=== PATIENT | male | born 1960 | race Caucasian/White ===

== ENCOUNTER 2019-07-11 12:53 | Emergency (ER) | payer BC ==
[2019-07-11] MEDS ORDERED: Albuterol/Ipratropium 3.0-0.5 MG/3 ML Neb Soln NEB ONE (13:48)
--- NOTE | 2019-07-11 13:51 | EDM.PDOC ---
ED HPI GENERAL MEDICAL PROBLEM - General Chief Complaint: Respiratory Problem Stated Complaint: COUGH CHEST PAIN AND SHOULDER PAIN Time Seen by Provider: 07/11/19 13:35 Source of Information: Reports: Patient, Family, Old Records History Limitations: Reports: No Limitations - History of Present Illness INITIAL COMMENTS - FREE TEXT/NARRATIVE: 59 yo male with COPD/tobacco abuse presents with onset upon awakening this morning of sharp R sided chest pains. No fever. Does have a cough. His SOB is not worse than usual. Pain is at times "tightness" and at times more sharp. No calf pain or LE edema. Coughing and deep breathing are the only things that make his breathing worse. Onset: Today Onset Date: 07/11/19 Onset Time: 07:45 Duration: Hour(s):, Constant Location: Reports: Chest Quality: Reports: Pressure, Sharp Severity: Moderate Improves with: Reports: Rest Worsens with: Reports: Breathing (and coughing) Context: Reports: Other (See HPI) Associated Symptoms: Reports: Cough, Shortness of Breath (chronic, not worse). Denies: Diaphoresis, Fever/Chills, Rash Treatments [employer] PROF[employer]: Reports: Other (see below) (none) Chest Pain Score (Numeric/FACES): 6 - Related Data Allergies Allergy/AdvReac Type Severity Reaction Status Date / Time No Known Allergies Allergy Verified 07/11/19 13:26 Home Meds: Home Meds Albuterol Sulfate [Proair Hfa] 1 - 2 puff INH Q4HR PRN 05/28/15 [History] Fluticasone Propion/Salmeterol [Fluticasone-Salmeterol 250-50] 1 puff IH BID [History] Fluticasone/Umeclidin/Vilanter [Trelegy Ellipta 100-62.5-25] 1 puff IH DAILY [History] Past Medical History HEENT History: Reports: Impaired Vision Other HEENT History: wears reading glasses Cardiovascular History: Reports: None Respiratory History: Reports: Asthma, COPD Gastrointestinal History: Reports: None Genitourinary History: Reports: None Musculoskeletal History: Reports: None Neurological History: Reports: None Psychiatric History: Reports: None Endocrine/Metabolic History: Reports: None Hematologic History: Reports: None Immunologic History: Reports: None Oncologic (Cancer) History: Reports: None Dermatologic History: Reports: None - Infectious Disease History Infectious Disease History: Reports: Chicken Pox, Mumps - Past Surgical History HEENT Surgical History: Reports: Oral Surgery Respiratory Surgical History: Reports: None Social & Family History - Family History Family Medical History: Noncontributory ED ROS GENERAL - Review of Systems Review Of Systems: See Below Constitutional: Reports: No Symptoms HEENT: Reports: No Symptoms Respiratory: Reports: Shortness of Breath (chronic, not worse), Cough. Denies: Wheezing, Pleuritic Chest Pain, Sputum, Hemoptysis Cardiovascular: Reports: Chest Pain (R anterior ), Dyspnea on Exertion (chronic) . Denies: Edema, Palpitations, Syncope GI/Abdominal: Reports: No Symptoms : Reports: No Symptoms Musculoskeletal: Reports: No Symptoms Skin: Reports: No Symptoms Neurological: Reports: No Symptoms Psychiatric: Reports: No Symptoms ED EXAM, GENERAL - Physical Exam Exam: See Below Exam Limited By: No Limitations General Appearance: Alert, WD/WN, No Apparent Distress Eye Exam: Bilateral Eye: Normal Inspection Ears: Normal External Exam, Normal Canal, Hearing Grossly Normal, Normal TMs Ear Exam: Bilateral Ear: Auricle Normal, Canal Normal, TM normal Nose: Normal Inspection, No Blood Throat/Mouth: Normal Inspection, Normal Lips, Normal Oropharynx, Normal Voice, No Airway Compromise Head: Atraumatic, Normocephalic Neck: Normal Inspection Respiratory/Chest: No Respiratory Distress, No Accessory Muscle Use, Chest Non- Tender, Decreased Breath Sounds Cardiovascular: Regular Rate, Rhythm, No Edema GI/Abdominal: Normal Bowel Sounds, Soft, Non-Tender, No Distention Back Exam: Normal Inspection. No: CVA Tenderness (R), CVA Tenderness (L) Extremities: Normal Inspection, Normal Range of Motion, Non-Tender, No Pedal Edema Neurological: Alert, Oriented, CN II-XII Intact, Normal Cognition, No Motor/ Sensory Deficits Psychiatric: Normal Affect, Normal Mood Skin Exam: Warm, Dry, Intact, Normal Color, No Rash EKG INTERPRETATION EKG Date: 07/11/19 Time: 13:20 Rhythm: NSR Rate (Beats/Min): 82 [place]: Normal P-Wave: Present QRS: Normal ST-T: Normal QT: Normal Comparison: NA - No Prior EKG Course - Vital Signs Last Recorded V/S: Last Vital Signs Temp 35.9 C L 07/11/19 13:21 Pulse 88 02/19/20 13:21 Resp 20 07/11/19 13:21 BP 103/77 07/11/19 13:21 Pulse Ox 92 L 07/11/19 13:21 - Orders/Labs/Meds Orders: Active Orders 24 hr Category Date Time Status Cardiac Monitoring [RC] .As Directed Care 07/11/19 13:27 Active EKG Documentation Completion [RC] ASDIRECTED Care 07/11/19 13:27 Active RT Aerosol Therapy [RC] ASDIRECTED Care 07/11/19 13:48 Active Chest 2V [CR] Stat Exams 07/11/19 13:45 Taken EKG 12 Lead [EK] Routine Ther 07/11/19 13:27 Ordered Labs: Laboratory Tests 07/11/19 07/11/19 07/11/19 Range/Units 14:00 14:00 14:00 WBC 7.6 (4.5-11.0) K/uL RBC 4.98 (4.30-5.90) M/uL Hgb 15.1 H (12.0-15.0) g/dL Hct 45.9 (40.0-54.0) % MCV 92 (80-98) fL MCH 30 (27-31) pg MCHC 33 (32-36) % Plt Count 250 (150-400) K/uL D-Dimer, Quantitative < 100 (0.0-400.0) ng/mL Sodium 140 (140-148) mmol/L Potassium 4.9 (3.6-5.2) mmol/L Chloride 104 (100-108) mmol/L Carbon Dioxide 29 (21-32) mmol/L Anion Gap 7.3 (5.0-14.0) mmol/L BUN 19 H (7-18) mg/dL Creatinine 1.1 (0.8-1.3) mg/dL Est Cr Clr Drug Dosing 54.67 mL/min Estimated GFR (MDRD) > 60 (>60) Glucose 83 (74-106) mg/dL Calcium 8.7 (8.5-10.1) mg/dL Troponin I < 0.017 (0.000-0.056) ng/mL Meds: Medications Discontinued Medications Generic Name Dose Route Start Last Admin Trade Name Freq PRN Reason Stop Dose Admin Albuterol/Ipratropium 3 ml 07/11/19 13:48 07/11/19 14:09 Duoneb 3.0-0.5 Mg/3 Ml NEB 07/11/19 13:49 3 ml ONETIME ONE Administration - Radiology Interpretation Free Text/Narrative:: CXR-emphysematous changes only Departure - Departure Time of Disposition: 14:40 Disposition: Home, Self-Care 01 Condition: Fair Clinical Impression: COPD exacerbation - Discharge Information *PRESCRIPTION DRUG MONITORING PROGRAM REVIEWED*: Not Applicable *COPY OF PRESCRIPTION DRUG MONITORING REPORT IN PATIENT DONN: Not Applicable Instructions: Chronic Obstructive Pulmonary Disease, [id number] Referrals: Sam Banks MD [Primary Care Provider] - Forms: ED Department Discharge Additional Instructions: Add prednisone to your current medications. Avoid any and all smoke exposure. Recheck with your doctor Tuesday afternoon if possible. Sepsis Event Note - Evaluation Sepsis Screening Result: No Definite Risk - Focused Exam Vital Signs: Vital Signs Temp Pulse Resp BP Pulse Ox 07/11/19 13:21 35.9 C L 88 20 103/77 92 L 07/11/19 13:17 35.9 C L 88 20 103/77 92 L Date Exam was Performed: 07/11/19 Time Exam was Performed: 14:29 - My Orders Last 24 Hours: My Active Orders 07/11/19 13:27 Cardiac Monitoring [RC] .As Directed EKG Documentation Completion [RC] ASDIRECTED EKG 12 Lead [EK] Routine 07/11/19 13:45 Chest 2V [CR] Stat 07/11/19 13:48 RT Aerosol Therapy [RC] ASDIRECTED - Assessment/Plan Last 24 Hours: My Active Orders 07/11/19 13:27 Cardiac Monitoring [RC] .As Directed EKG Documentation Completion [RC] ASDIRECTED EKG 12 Lead [EK] Routine 07/11/19 13:45 Chest 2V [CR] Stat 07/11/19 13:48 RT Aerosol Therapy [RC] ASDIRECTED
[2019-07-11 14:20] VITALS: BP 103/77; PULSE 88
--- NOTE | 2019-07-11 14:56 | CR ---
CHEST: 2 view CLINICAL HISTORY:Right-sided pleuritic pain COMPARISON:2015 FINDINGS: Lungs are moderately emphysematous. Heart size and pulmonary vascular are normal. There is vague density in the right upper lung field. The this may represent some super imposition. Impression: Vague density in the right upper lung field. This may represent some super imposition. The pulmonary or pleural lesion is not excluded. It is short-term follow-up or noncontrast CT chest should be considered.
== END 2019-07-11 14:42 | disposition home or self-care (01) ==
LOC: JP.ED 12:53
DX: J44.1 Chronic obstructive pulmonary disease with (acute) exacerbation (principal); Z79.51 Long term (current) use of inhaled steroids
CPT/HCPCS: 36415; 71046; 71046-26; 80048; 84484; 85027; 85379; 93005; 94640; 99285-25; J7620-GY

== ENCOUNTER 2021-03-22 21:17 | Emergency (ER) | payer BC, MEDICAID ==
--- NOTE | 2021-03-22 21:28 | EDM.PDOC ---
ED HPI GENERAL MEDICAL PROBLEM - General Stated Complaint: MEDICAL VIA [facility] Time Seen by Provider: 03/22/21 21:23 Source of Information: Reports: Patient, EMS, RN Notes Reviewed History Limitations: Reports: No Limitations - History of Present Illness INITIAL COMMENTS - FREE TEXT/NARRATIVE: 60-year-old gentleman presents emergency department day complaint of shortness of breath, he arrives by EMS services they did try and offer him a nebulizer but he declined he states the nebulizer usually makes things worse for him. He has a known history of extensive lung disease he states usually he can do pretty good if he moves low however today he got into trouble he had bent over to pick something up and suddenly short of breath the cold air has not helped is difficult for him to catch his breath. No fevers no nausea vomiting no chest pain - Related Data Allergies Allergy/AdvReac Type Severity Reaction Status Date / Time No Known Allergies Allergy Verified 07/11/19 13:26 Home Meds: Home Meds Albuterol Sulfate [Proair Hfa] 1 - 2 puff INH Q4HR PRN 05/28/15 [History] Fluticasone Propion/Salmeterol [Fluticasone-Salmeterol 250-50] 1 puff IH BID 07/11/19 [History] Fluticasone/Umeclidin/Vilanter [Trelegy Ellipta 100-62.5-25] 1 puff IH DAILY 07/11/19 [History] predniSONE [Prednisone] 20 mg PO BID #20 tablet 07/11/19 [Rx] Past Medical History HEENT History: Reports: Impaired Vision Other HEENT History: wears reading glasses Respiratory History: Reports: Asthma, COPD Dermatologic History: Reports: None - Infectious Disease History Infectious Disease History: Reports: Chicken Pox, Mumps - Past Surgical History HEENT Surgical History: Reports: Oral Surgery Respiratory Surgical History: Reports: None Social & Family History - Family History Family Medical History: No Pertinent Family History - Tobacco Use Tobacco Use Status *Q: Former Tobacco User - Caffeine Use Caffeine Use: Reports: Coffee ED ROS GENERAL - Review of Systems Review Of Systems: See Below Constitutional: Denies: Fever, Chills HEENT: Reports: No Symptoms Respiratory: Reports: Shortness of Breath, Wheezing, Cough. Denies: Sputum Cardiovascular: Reports: No Symptoms GI/Abdominal: Reports: No Symptoms : Reports: No Symptoms ED EXAM, GENERAL - Physical Exam Exam: See Below Exam Limited By: Respiratory Distress General Appearance: Alert, Moderate Distress Respiratory/Chest: Respiratory Distress, Decreased Breath Sounds, Wheezing Cardiovascular: Tachycardia GI/Abdominal: Soft, Non-Tender Course - Vital Signs Last Recorded V/S: Last Vital Signs Temp 97.8 F 03/22/21 21:46 Pulse 92 03/22/21 21:46 Resp 24 H 03/22/21 21:46 BP 142/77 H 03/22/21 21:46 Pulse Ox 98 03/22/21 21:46 - Orders/Labs/Meds Orders: Active Orders 24 hr Category Date Time Status RT Post Treatment Assessment [RC] Click to Edit Care 03/22/21 21:24 Active Chest 2V [CR] Urgent Exams 03/22/21 21:23 Taken Albuterol [Ventolin HFA] Med 03/22/21 21:24 Active 2 gm INH Q2H PRN Isolation [COMM] Stat Oth 03/22/21 21:25 Ordered Medication Orders Albuterol (Albuterol 8 Gm Inhaler) 2 gm INH Q2H PRN PRN Reason: Dyspnea Last Admin: 03/22/21 21:34 Dose: 2 gm Documented by: AMBROSE Labs: Laboratory Tests 03/22/21 03/22/21 03/22/21 Range/Units 21:43 21:43 21:43 WBC 8.5 (4.5-11.0) K/uL RBC 5.15 (4.30-5.90) M/uL Hgb 16.3 H (12.0-15.0) g/dL Hct 47.4 (40.0-54.0) % MCV 92 (80-98) fL MCH 32 H (27-31) pg MCHC 34 (32-36) % Plt Count 274 (150-400) K/uL Neut % (Auto) 65.1 (36-66) % Lymph % (Auto) 24.4 (24-44) % [place] % (Auto) 5.3 (2-6) % Eos % (Auto) 3.6 (2-4) % Baso % (Auto) 1.5 H (0-1) % Sodium 139 L (140-148) mmol/L Potassium 4.6 (3.6-5.2) mmol/L Chloride 103 (100-108) mmol/L Carbon Dioxide 29 (21-32) mmol/L Anion Gap 11.6 (5.0-14.0) mmol/L BUN 22 H (7-18) mg/dL Creatinine 0.9 (0.8-1.3) mg/dL Est Cr Clr Drug Dosing 68.30 mL/min Estimated GFR (MDRD) > 60 (>60) Glucose 100 (74-106) mg/dL Calcium 8.8 (8.5-10.1) mg/dL Troponin I < 0.017 (0.000-0.056) ng/mL Influenza Type A RNA (NEGATIVE) RSV RNA (INAAT) (NEGATIVE) Influenza Type B RNA (NEGATIVE) SARS-CoV-2 RNA (JORGE) (NEGATIVE) 03/22/21 Range/Units 21:53 WBC (4.5-11.0) K/uL RBC (4.30-5.90) M/uL Hgb (12.0-15.0) g/dL Hct (40.0-54.0) % MCV (80-98) fL MCH (27-31) pg MCHC (32-36) % Plt Count (150-400) K/uL Neut % (Auto) (36-66) % Lymph % (Auto) (24-44) % [place] % (Auto) (2-6) % Eos % (Auto) (2-4) % Baso % (Auto) (0-1) % Sodium (140-148) mmol/L Potassium (3.6-5.2) mmol/L Chloride (100-108) mmol/L Carbon Dioxide (21-32) mmol/L Anion Gap (5.0-14.0) mmol/L BUN (7-18) mg/dL Creatinine (0.8-1.3) mg/dL Est Cr Clr Drug Dosing mL/min Estimated GFR (MDRD) (>60) Glucose (74-106) mg/dL Calcium (8.5-10.1) mg/dL Troponin I (0.000-0.056) ng/mL Influenza Type A RNA Negative (NEGATIVE) RSV RNA (INAAT) Negative (NEGATIVE) Influenza Type B RNA Negative (NEGATIVE) SARS-CoV-2 RNA (JORGE) Negative (NEGATIVE) Meds: Medications Generic Name Dose Route Start Last Admin Trade Name Freq PRN Reason Stop Dose Admin Albuterol 2 gm 03/22/21 21:24 03/22/21 21:34 Albuterol 8 Gm Inhaler INH 2 gm Q2H PRN Administration Dyspnea Departure - Departure Time of Disposition: 22:54 Disposition: Home, Self-Care 01 Condition: Fair Clinical Impression: COPD exacerbation - Discharge Information Instructions: Chronic Obstructive Pulmonary Disease Exacerbation, [id number] Referrals: PCP,None [Primary Care Provider] - Additional Instructions: Continue on your antibiotics, take full course of prednisone 20 mg once a day for 5 days, please followup with your primary care provider in 3-5 days if not better, please call return to the emergency department with worsening of symptoms. Sepsis Event Note (ED) - Focused Exam Vital Signs: Vital Signs Temp Pulse Resp BP Pulse Ox 03/22/21 21:46 97.8 F 92 24 H 142/77 H 98 - My Orders Last 24 Hours: My Active Orders 03/22/21 21:23 Chest 2V [CR] Urgent 03/22/21 21:24 RT Post Treatment Assessment [RC] Click to Edit Albuterol [Ventolin HFA] 2 gm INH Q2H PRN 03/22/21 21:25 Isolation [COMM] Stat - Assessment/Plan Last 24 Hours: My Active Orders 03/22/21 21:23 Chest 2V [CR] Urgent 03/22/21 21:24 RT Post Treatment Assessment [RC] Click to Edit Albuterol [Ventolin HFA] 2 gm INH Q2H PRN 03/22/21 21:25 Isolation [COMM] Stat Plan: Assessment Acuity = acute Site and laterality = COPD exacerbation Etiology = unknown Manifestations = none Location of injury = Home Lab values = CBC, BMP unremarkable troponin was negative, Covid was negative Plan Had good improvement with the albuterol neb provided he is now off oxygen feels back to his normal baseline he will get continue to use albuterol as needed did place him on prednisone 20 mg once a day for 5 days follow-up primary care in 3 to 5 days if no better This note was dictated using [employer] voice recognition software please call with any questions on syntax or grammar.
[2021-03-22] MEDS: Albuterol 8 GM Inhaler INH PRN (21:34)
[2021-03-22 22:44] LABS: CORONAVIRUS COVID-19 NAA NEGATIVE (NEGATIVE)
[2021-03-22 23:43] VITALS: BP 138/70; PULSE 85
--- NOTE | 2021-03-23 09:54 | CR ---
CHEST: 2 view CLINICAL HISTORY:SOB COMPARISON: July 2019 FINDINGS: Lungs are emphysematous. The heart size, pulmonary vascularity and hilar structures are normal. No infiltrate effusion or pneumothorax is seen. IMPRESSION: No acute cardiopulmonary process Moderate emphysematous changes .
== END 2021-03-22 23:05 | disposition home or self-care (01) ==
LOC: JP.ED 21:17
DX: J44.1 Chronic obstructive pulmonary disease with (acute) exacerbation (principal); Z20.822 Contact with and (suspected) exposure to COVID-19; Z87.891 Personal history of nicotine dependence
CPT/HCPCS: 0241U; 36415; 71046; 80048; 84484; 85025; 94640; 99285; A9270

== ENCOUNTER 2021-07-20 09:24 | Emergency (ER) | payer MEDICAID ==
[2021-07-20 09:45] VITALS: BP 97/71; PULSE 91
== END 2021-07-20 10:30 | disposition home or self-care (01) ==
LOC: JP.ED 09:24
DX: J44.1 Chronic obstructive pulmonary disease with (acute) exacerbation (principal); U07.1 COVID-19
CPT/HCPCS: 99283; 99284

== ENCOUNTER 2021-08-11 16:15 | Emergency (ER) | payer MEDICARE, MEDICAID ==
[2021-08-11 16:34] VITALS: BP 107/75; PULSE 82
[2021-08-11] MEDS ORDERED: Codeine/guaiFENesin 10-100 MG/5 ML Syrup 5 ML Cup PO ONE (17:12)
[2021-08-11] MEDS ORDERED: Sodium Chloride 0.9% 10 ML Syringe FLUSH PRN (18:11)
[2021-08-11] MEDS ORDERED: Sodium Chloride 0.9% 1,000 ML IV SCH (18:15)
[2021-08-11] MEDS ORDERED: Sodium Chloride 0.9% 75 ML IV SCH (18:15)
[2021-08-11] MEDS ORDERED: Iopamidol 755 Mg/ML 100 ML Bottle IV SCH (18:15)
== END 2021-08-11 19:56 | disposition home or self-care (01) ==
LOC: JP.ED 16:15
DX: J44.9 Chronic obstructive pulmonary disease, unspecified (principal); J18.9 Pneumonia, unspecified organism; R91.1 Solitary pulmonary nodule; Z87.891 Personal history of nicotine dependence
CPT/HCPCS: 36415; 71046; 71275; 80053; 84484; 85025; 85379; 99283; 99285; A9270; J7030; Q9967

== ENCOUNTER 2022-07-28 10:27 | Inpatient (IN) | payer BC, MEDICARE ==
[2022-07-28] MEDS ORDERED: Acetaminophen 325 MG Tab PO ONE (11:24)
[2022-07-28] MEDS ORDERED: Sodium Chloride 0.9% 1,000 ML IV SCH (11:30)
[2022-07-28] MEDS ORDERED: Albuterol 0.083% 2.5 MG/3 ML Neb Soln NEB ONE (11:39)
[2022-07-28 11:47] LABS: ESTIMATED GFR 101 mL/min (>60)
[2022-07-28] MEDS ORDERED: Azithromycin 500 MG in Sodium Chloride 0.9% 250 ML IV SCH (14:00)
[2022-07-28] MEDS ORDERED: Ampicillin/Sulbactam Na 1.5 GM in Sodium Chloride 0.9% 50 ML IV SCH (14:00)
[2022-07-28] MEDS ORDERED: Albuterol 0.083% 2.5 MG/3 ML Neb Soln NEB PRN (14:22)
[2022-07-28] MEDS ORDERED: Albuterol 90 MCG/6.7 GM Inhaler INH PRN (14:22)
[2022-07-28] MEDS ORDERED: Sodium Chloride 0.9% 10 ML Syringe FLUSH PRN (14:22)
[2022-07-28] MEDS ORDERED: Ondansetron 4 MG/2 ML SDV IV PRN (14:22)
[2022-07-28] MEDS ORDERED: Acetaminophen 325 MG Tab PO PRN (14:22)
[2022-07-28 14:57] LABS: CORONAVIRUS COVID-19 NAA NEGATIVE (NEGATIVE)
[2022-07-28] MEDS: Enoxaparin 40 MG/0.4 ML Syringe SUBCUT SCH (15:59)
[2022-07-28] MEDS: methylPREDNISolone Sodium Succinate 40 MG/1 ML SDV IVPUSH SCH (16:01)
[2022-07-28] MEDS: Sodium Chloride 0.9% 1,000 ML IV SCH (18:08)
[2022-07-28] MEDS: Ampicillin/Sulbactam Na 1.5 GM in Sodium Chloride 0.9% 50 ML IV SCH (19:14)
[2022-07-28] MEDS: Formoterol/Mometasone 100-5 MCG 8.8 GM Inhaler IH SCH (20:34)
[2022-07-28] MEDS ORDERED: Sodium Chloride 0.9% 500 ML IV ONE (20:52)
[2022-07-29] MEDS: Ampicillin/Sulbactam Na 1.5 GM in Sodium Chloride 0.9% 50 ML IV SCH ×4 (01:04→19:55)
[2022-07-29] MEDS: methylPREDNISolone Sodium Succinate 40 MG/1 ML SDV IVPUSH SCH ×4 (01:04→23:39)
[2022-07-29] MEDS: Tiotropium Bromide 4 GM Inhalation Spray (2.5mcg/1 dose; 10 doses) INH SCH (07:23)
[2022-07-29] MEDS: Formoterol/Mometasone 100-5 MCG 8.8 GM Inhaler IH SCH ×2 (07:23→20:01)
[2022-07-29] MEDS: Sodium Chloride 0.9% 1,000 ML IV SCH (12:21)
[2022-07-29] MEDS: Enoxaparin 40 MG/0.4 ML Syringe SUBCUT SCH (15:23)
[2022-07-29] MEDS ORDERED: Azithromycin 500 MG in Sodium Chloride 0.9% 250 ML IV SCH (16:00)
[2022-07-30] MEDS: Ampicillin/Sulbactam Na 1.5 GM in Sodium Chloride 0.9% 50 ML IV SCH ×3 (01:58→14:26)
[2022-07-30] MEDS: Formoterol/Mometasone 100-5 MCG 8.8 GM Inhaler IH SCH (07:09)
[2022-07-30] MEDS: Tiotropium Bromide 4 GM Inhalation Spray (2.5mcg/1 dose; 10 doses) INH SCH (07:09)
[2022-07-30] MEDS: methylPREDNISolone Sodium Succinate 40 MG/1 ML SDV IVPUSH SCH ×3 (08:03→23:52)
[2022-07-30] MEDS: TRELEGY ELLIPTA INH SCH (08:40)
[2022-07-30] MEDS: Sodium Chloride 0.9% 1,000 ML IV SCH (12:36)
[2022-07-30] MEDS ORDERED: Azithromycin 250 MG Tab PO SCH (15:00)
[2022-07-30] MEDS: Enoxaparin 40 MG/0.4 ML Syringe SUBCUT SCH (16:24)
[2022-07-30] MEDS: Amoxicillin/Clavulanate K 875-125 MG Tab PO SCH (20:01)
[2022-07-31 07:14] VITALS: BP 115/78; PULSE 76
[2022-07-31] MEDS ORDERED: predniSONE 20 MG Tab PO SCH (08:00)
[2022-07-31] MEDS: TRELEGY ELLIPTA INH SCH (08:02)
[2022-07-31] MEDS: Amoxicillin/Clavulanate K 875-125 MG Tab PO SCH (08:03)
== END 2022-07-31 11:00 | disposition home or self-care (01) | DRG 139 ==
LOC: JP.ED 10:27 → JP.MS 13:50
PROVIDERS: ADMIT Hospitalist; ATTEND Internal Medicine
DX: J18.9 Pneumonia, unspecified organism (principal); E88.01 Alpha-1-antitrypsin deficiency; F41.9 Anxiety disorder, unspecified; J96.01 Acute respiratory failure with hypoxia; E86.0 Dehydration; J43.9 Emphysema, unspecified; Z79.51 Long term (current) use of inhaled steroids; Z87.891 Personal history of nicotine dependence; Z79.899 Other long term (current) drug therapy; Z98.890 Other specified postprocedural states
CPT/HCPCS: 0241U; 36415; 71045; 71045-26; 71250; 71250-26; 80048; 80053; 83735; 83880; 85025; 85379; 85610; 85730; 86140; 87040; 94640; 96361; 96365; 96375; 99222; 99232; 99239; 99285; 99285-25; A9270-GY; J0295; J0456; J1650; J2920; J7030; J7040; J7050; J7512

== ENCOUNTER 2022-07-31 18:55 | Observation (INO) | payer BC, MEDICARE ==
[2022-07-31] MEDS ORDERED: Aspirin 81 MG Tab.Chew PO ONE (19:38)
[2022-07-31] MEDS ORDERED: Ondansetron 4 MG/2 ML SDV IVPUSH ONE (19:38)
[2022-07-31] MEDS ORDERED: Sodium Chloride 0.9% 10 ML Syringe FLUSH PRN (19:38)
[2022-07-31] MEDS ORDERED: Nitroglycerin 0.4 MG Tab.SL SL PRN (19:38)
[2022-07-31] MEDS ORDERED: Albuterol/Ipratropium 3.0-0.5 MG/3 ML Neb Soln NEB ONE (19:38)
[2022-07-31] MEDS ORDERED: Morphine 4 MG/ML Syringe IVPUSH PRN (19:38)
[2022-07-31 20:28] LABS: ESTIMATED GFR 101 mL/min (>60); TROPONIN I HIGH SENSITIVITY 12.2 pg/mL (<=60.3)
[2022-07-31] MEDS ORDERED: Dexamethasone 4 MG/ML SDV PO ONE (21:01)
[2022-07-31] MEDS ORDERED: Melatonin 3 MG Tab PO PRN (22:51)
[2022-07-31] MEDS ORDERED: Benzocaine/Cetylpyridinium/Menthol Lozenge MUCMEM PRN (22:51)
[2022-07-31] MEDS ORDERED: Codeine/guaiFENesin 10-100 MG/5 ML Syrup 5 ML Cup PO PRN (22:51)
[2022-07-31] MEDS ORDERED: Morphine 2 MG/ML SYRINGE IVPUSH PRN (22:52)
[2022-07-31] MEDS ORDERED: LORazepam 2 MG/ML SDV IV PRN (22:52)
[2022-07-31] MEDS ORDERED: Acetaminophen 325 MG Tab PO PRN (22:52)
[2022-07-31] MEDS ORDERED: Ondansetron 4 MG Tab.DIS PO PRN (22:52)
[2022-07-31] MEDS ORDERED: Docusate Sodium 100 MG Cap PO PRN (22:52)
[2022-07-31] MEDS ORDERED: Amoxicillin/Clavulanate K 875-125 MG Tab PO SCH (22:52)
[2022-07-31] MEDS ORDERED: Albuterol 90 MCG/6.7 GM Inhaler INH PRN (23:00)
[2022-07-31] MEDS ORDERED: predniSONE 10 MG Tab PO ONE (23:00)
[2022-07-31] MEDS ORDERED: Amoxicillin/Clavulanate K 875-125 MG Tab***own med PO ONE (23:30)
[2022-07-31] MEDS ORDERED: PREDNISONE 10 MG PO ONE (23:30)
[2022-08-01] MEDS: Formoterol/Mometasone 100-5 MCG 8.8 GM Inhaler IH SCH ×2 (08:58→20:45)
[2022-08-01] MEDS: Tiotropium Bromide 4 GM Inhalation Spray (2.5mcg/1 dose; 10 doses) INH SCH (08:58)
[2022-08-01] MEDS: Enoxaparin 40 MG/0.4 ML Syringe SUBCUT SCH (09:13)
[2022-08-01] MEDS: Amoxicillin/Clavulanate K 875-125 MG Tab***own med PO SCH ×2 (10:26→20:49)
[2022-08-01] MEDS: PREDNISONE 10 MG PO SCH (10:26)
[2022-08-01] MEDS ORDERED: AZITHROMYCIN 500 MG PO SCH (17:00)
[2022-08-01] MEDS ORDERED: Azithromycin 250 MG Tab PO SCH (17:00)
[2022-08-01] MEDS: LORazepam 0.5 MG Tab PO PRN (21:28)
[2022-08-01] MEDS: oxyCODONE 5 MG Tab PO PRN (22:22)
[2022-08-02] MEDS: Tiotropium Bromide 4 GM Inhalation Spray (2.5mcg/1 dose; 10 doses) INH SCH (07:10)
[2022-08-02] MEDS: Formoterol/Mometasone 100-5 MCG 8.8 GM Inhaler IH SCH (07:10)
[2022-08-02] MEDS: PREDNISONE 10 MG PO SCH (08:29)
[2022-08-02] MEDS: Amoxicillin/Clavulanate K 875-125 MG Tab***own med PO SCH (08:29)
[2022-08-02] MEDS: oxyCODONE 5 MG Tab PO PRN (08:29)
[2022-08-02] MEDS: Enoxaparin 40 MG/0.4 ML Syringe SUBCUT SCH (08:29)
[2022-08-02] MEDS: LORazepam 0.5 MG Tab PO PRN (11:48)
[2022-08-02 11:51] VITALS: BP 103/71; PULSE 81
[2022-08-04] MEDS ORDERED: PREDNISONE 10 MG PO SCH (09:00)
== END 2022-08-02 13:05 | disposition home or self-care (01) ==
LOC: JP.ED 18:55 → JP.MS 21:59
PROVIDERS: ADMIT Internal Medicine; ATTEND Internal Medicine
DX: J69.0 Pneumonitis due to inhalation of food and vomit (principal); J96.01 Acute respiratory failure with hypoxia; J44.1 Chronic obstructive pulmonary disease with (acute) exacerbation; E88.01 Alpha-1-antitrypsin deficiency; Z87.891 Personal history of nicotine dependence; Z79.899 Other long term (current) drug therapy; Z20.822 Contact with and (suspected) exposure to COVID-19
CPT/HCPCS: 36415; 71046; 80053; 82947; 83605; 84484; 85025; 85379; 87635; 93005; 93010; 94640; 96372; 96374; 96375; 96376; 99222; 99238; 99284; 99285; A9270; G0378; J1650; J2060; J2270; J2405; J3490; J7512; J8540; J7620; U0002

== ENCOUNTER 2023-04-12 17:56 | Inpatient (IN) | payer BC, MEDICARE ==
[2023-04-12] MEDS ORDERED: methylPREDNISolone Sodium Succinate 125 MG/2 ML SDV IVPUSH ONE (18:07)
[2023-04-12] MEDS ORDERED: Sodium Chloride 0.9% 10 ML Syringe FLUSH PRN (18:07)
[2023-04-12] MEDS ORDERED: Albuterol/Ipratropium 3.0-0.5 MG/3 ML Neb Soln NEB ONE (18:07)
[2023-04-12] MEDS ORDERED: Sodium Chloride 0.9% 1,000 ML IV SCH (18:15)
[2023-04-12 18:28] LABS: BASOPHILS PERCENT AUTO 1.2 % (0.1-1.3); EOSINOPHILS ABSOLUTE AUTO 0.14 K/uL (0.00-0.40); EOSINOPHILS PERCENT AUTO 1.7 % (0.0-5.4); HEMATOCRIT 47.3 % (38.4-49.7); HEMOGLOBIN 16.2 g/dL (12.9-16.9); IMMATURE GRAN ABSOLUTE AUTO 0.03 K/uL (0.00-0.23); IMMATURE GRAN PERCENT AUTO 0.4 % (0.0-0.7); LYMPHOCYTES ABSOLUTE AUTO 1.52 K/uL (0.8-3.3); LYMPHOCYTES PERCENT AUTO 18.5 % (11.4-47.7); MEAN CORPUSCULAR HEMOGLOBIN 32.1 pg (31.6-35.5); MEAN CORPUSCULAR HGB CONC 34.2 g/dL (31.6-35.5); MEAN CORPUSCULAR VOLUME 93.7 fL (81.4-99.0); MONOCYTES PERCENT AUTO 6.1 % (3.3-12.6); NEUTROPHILS ABSOLUTE AUTO 5.93 K/uL (1.0-7.6); NEUTROPHILS PERCENT AUTO 72.1 % (40.0-78.1); PLATELET COUNT,PLT 301 K/uL (130-375); RED BLOOD CELL COUNT 5.05 M/uL (4.14-5.76); WHITE BLOOD CELL COUNT,WBC 8.2 K/uL (3.2-11.0)
[2023-04-12 18:50] LABS: A/G RATIO 1.1 (1.2-2.2); ALANINE AMINOTRANSFERASE,ALT 26 U/L (12-78); ALKALINE PHOSPHATASE 112 U/L (46-116); ASPARTATE AMNIOTRANSFERASE,AST 25 U/L (15-37); BILIRUBIN TOTAL 0.9 mg/dL (0.2-1.0); BLOOD UREA NITROGEN,BUN 30 mg/dL (7-18); C-REACTIVE PROTEIN 0.07 mg/dL (0.0-0.3); CALCIUM 8.7 mg/dL (8.5-10.1); CARBON DIOXIDE,CO2 36 mmol/L (21-32); CHLORIDE,CL 100 mmol/L (100-108); CREATININE 0.9 mg/dL (0.8-1.3); ESTIMATED GFR 98 mL/min (>60); GLUCOSE RANDOM 151 mg/dL (74-106); POTASSIUM,K 4.4 mmol/L (3.6-5.2); PROTEIN TOTAL,TP 7.6 g/dL (6.4-8.2); SODIUM,NA 140 mmol/L (140-148)
[2023-04-12 18:51] LABS: ANION GAP 8.4 mmol/L (5.0-14.0)
[2023-04-12] MEDS ORDERED: LORazepam 0.5 MG Tab PO ONE (19:01)
[2023-04-12 19:12] LABS: CORONAVIRUS COVID-19 NAA NEGATIVE (NEGATIVE); INFLUENZA A NAA NEGATIVE (NEGATIVE); INFLUENZA B NAA NEGATIVE (NEGATIVE); RESPIRATORY SYNCYTIAL VIR NAA NEGATIVE (NEGATIVE)
[2023-04-12] MEDS ORDERED: Ondansetron 4 MG/2 ML SDV IVPUSH ONE (19:51)
[2023-04-12 20:00] LABS: BASE EXCESS ARTERIAL 3.5 mm/L; BICARBONATE,ARTERIAL 29.4 mmol/L (22.0-26.0); CARBOXYHEMOGLOBIN 1.5 % (0.0-1.6); METHEMOGLOBIN 0.9 %; O2 SATURATION ARTERIAL 97.2 % (95.0-98.0); OXYHEMOGLOBIN 94.9 %; PCO2 ARTERIAL 51.7 mmHg (35.0-42.0); PO2 ARTERIAL 88.7 mmHg (75.0-100.0); TOTAL HEMOGLOBIN 14.9 g/dL (13.5-18.0)
[2023-04-12] MEDS ORDERED: Albuterol/Ipratropium 3.0-0.5 MG/3 ML Neb Soln NEB PRN (20:50)
[2023-04-12] MEDS ORDERED: Ondansetron 4 MG/2 ML SDV IV PRN (20:50)
[2023-04-12] MEDS ORDERED: LORazepam 2 MG/ML SDV IV PRN (20:50)
[2023-04-12] MEDS ORDERED: Acetaminophen 325 MG Tab PO PRN (20:50)
[2023-04-12] MEDS: Sodium Chloride 0.9% 1,000 ML IV SCH (22:06)
[2023-04-13] MEDS: methylPREDNISolone Sodium Succinate 125 MG/2 ML SDV IVPUSH SCH ×2 (02:06→10:06)
[2023-04-13] MEDS: Sodium Chloride 0.9% 1,000 ML IV SCH ×2 (06:58→14:48)
[2023-04-13] MEDS: Tiotropium Bromide 4 GM Inhalation Spray (2.5mcg/1 dose; 10 doses) INH SCH (08:49)
[2023-04-13] MEDS: Formoterol/Mometasone 200-5 MCG 8.8 GM Inhaler IH SCH ×2 (08:50→21:08)
[2023-04-13] MEDS ORDERED: Non-Formulary Medication 1 Each (Fluticasone/Umeclidin/Vilanter [Trelegy Ellipta 100-62.5- IH SCH (09:00)
[2023-04-13] MEDS ORDERED: FLU (Fluarix Quad) QS2023-24(6MOS UP)/PF 60 MCG/0.5 ML Syringe IM ONE (10:00)
[2023-04-13] MEDS ORDERED: Benzocaine/Cetylpyridinium/Menthol Lozenge MUCMEM PRN (11:19)
[2023-04-13] MEDS: Enoxaparin 40 MG/0.4 ML Syringe SUBCUT SCH (16:18)
[2023-04-13] MEDS: Pantoprazole 40 MG Tab.CR PO SCH (16:18)
[2023-04-13] MEDS: methylPREDNISolone Sodium Succinate 40 MG/1 ML SDV IVPUSH SCH (17:06)
[2023-04-14] MEDS: methylPREDNISolone Sodium Succinate 40 MG/1 ML SDV IVPUSH SCH ×3 (02:13→17:10)
[2023-04-14] MEDS ORDERED: Morphine 2 MG/ML SYRINGE IVPUSH ONE ×2 (02:25→03:41)
[2023-04-14 03:04] LABS: CREATININE 0.8 mg/dL (0.8-1.3); EST CRCL DRUG DOSING (CG) 60.23 mL/min; POTASSIUM,K 4.4 mmol/L (3.6-5.2)
[2023-04-14 03:06] LABS: ANION GAP 8.4 mmol/L (5.0-14.0)
[2023-04-14] MEDS ORDERED: Aspirin 81 MG Tab.Chew PO ONE (03:10)
[2023-04-14] MEDS ORDERED: Sodium Chloride 0.9% 500 ML IV ONE ×2 (05:10→05:46)
[2023-04-14] MEDS ORDERED: Sodium Chloride 0.9% 1,000 ML IV SCH (05:15)
[2023-04-14] MEDS ORDERED: Lidocaine 4% 1 each Patch TOP SCH (06:15)
[2023-04-14] MEDS: Formoterol/Mometasone 200-5 MCG 8.8 GM Inhaler IH SCH ×2 (07:21→20:00)
[2023-04-14] MEDS: Tiotropium Bromide 4 GM Inhalation Spray (2.5mcg/1 dose; 10 doses) INH SCH (07:22)
[2023-04-14] MEDS: Pantoprazole 40 MG Tab.CR PO SCH ×2 (07:45→17:09)
[2023-04-14] MEDS ORDERED: LORazepam 0.5 MG Tab PO PRN (13:22)
[2023-04-14] MEDS: Diclofenac Sodium 1% Gel 100 GM Tube TOP SCH ×2 (17:09→22:37)
[2023-04-14] MEDS: Enoxaparin 40 MG/0.4 ML Syringe SUBCUT SCH (17:12)
[2023-04-15 01:26] VITALS: BP 95/61
[2023-04-15] MEDS: methylPREDNISolone Sodium Succinate 40 MG/1 ML SDV IVPUSH SCH ×2 (02:38→10:04)
[2023-04-15] MEDS: Diclofenac Sodium 1% Gel 100 GM Tube TOP SCH ×2 (05:15→10:04)
[2023-04-15 05:30] VITALS: PULSE 66
[2023-04-15] MEDS: Formoterol/Mometasone 200-5 MCG 8.8 GM Inhaler IH SCH (07:17)
[2023-04-15] MEDS: Tiotropium Bromide 4 GM Inhalation Spray (2.5mcg/1 dose; 10 doses) INH SCH (07:17)
[2023-04-15] MEDS: Pantoprazole 40 MG Tab.CR PO SCH (07:26)
[2023-04-15] MEDS ORDERED: Lidocaine 4% 1 each Patch TOP SCH (09:00)
== END 2023-04-15 13:15 | disposition home or self-care (01) | DRG 189 ==
LOC: JP.ED 17:56 → JP.MS 20:50
PROVIDERS: ADMIT Family Medicine; ATTEND Hospitalist
PROC: 4A033R1 Measurement of Arterial Saturation, Peripheral, Percutaneous Approach (ICD-10-PCS; principal; 2023-04-12)
DX: J96.21 Acute and chronic respiratory failure with hypoxia (principal); E44.0 Moderate protein-calorie malnutrition; J44.1 Chronic obstructive pulmonary disease with (acute) exacerbation; Z68.1 Body mass index [BMI] 19.9 or less, adult; J96.22 Acute and chronic respiratory failure with hypercapnia; E86.0 Dehydration; E88.01 Alpha-1-antitrypsin deficiency; Z87.891 Personal history of nicotine dependence; Z98.890 Other specified postprocedural states; Z79.899 Other long term (current) drug therapy; Z11.52 Encounter for screening for COVID-19
CPT/HCPCS: 0241U; 36415; 36600; 71045; 71045-26; 71046; 71046-26; 80048; 80053; 82803; 84484; 85025; 86140; 87040; 90686; 93005; 94640; 96361; 96374; 96375; 99232; 99238; 99285; 99285-25; A9270-GY; G0008; J1650; J2270; J2405; J2920; J2930; J3490; J7030; J7040; J7620